=== PATIENT | male | born 1970 | race Caucasian/White ===

== ENCOUNTER 2017-02-22 23:14 | Inpatient (IN) | payer MEDICAID, SELFPAY ==
[2017-02-22] MEDS ORDERED: Acetaminophen 500 MG TAB ONE (23:54)
[2017-02-23 00:17] LABS: Hematocrit 48.8 % (42.0-52.0); Mean Platelet Volume 8.5 fL (7.4-10.4); Red Blood Cell (RBC) Count 4.93 mill/uL (4.70-6.10); White Blood Cell (WBC) Count 19.6 thou/uL (4.8-10.8)
[2017-02-23 00:27] LABS: ALT (SGPT) 61 U/L (8-55); AST (SGOT) 38 U/L (5-34); Alkaline Phosphatase 131 U/L (40-150); Anion Gap 14 mmol/L (10-20); BUN (Urea Nitrogen) 12 mg/dL (8.9-20.6); Bilirubin, Total 1.4 mg/dL (0.2-1.2); Calc. Creatinine Clearance 0 mL/min (70-130); Calcium 9.8 mg/dL (7.8-10.44); Carbon Dioxide 22 mmol/L (22-29); Chloride 104 mmol/L (98-107); Estimated GFR-MDRD Greater than 90; Protein, Total 7.1 g/dL (6.0-8.3)
[2017-02-23] MEDS ORDERED: Ketorolac Tromethamine 30 MG/ML VIAL ONE (00:27)
[2017-02-23 00:32] LABS: Troponin I Less than 0.010 ng/mL (< 0.028)
[2017-02-23 00:34] LABS: Band 8 % (5-11); Neutrophil 77 % (42-75)
[2017-02-23] MEDS ORDERED: Albuterol Sulfate 2.5 mg/3 ml Neb ONE (00:39)
[2017-02-23] MEDS ORDERED: HYDROcodone/Acetaminophen 5/325 mg Tablet ONE (01:17)
[2017-02-23 01:36] LABS: Lactic Acid - Sepsis 2.4 mmol/L (0.5-2.2)
[2017-02-23] MEDS ORDERED: oxyCODONE/Acetaminophen 5 mg/325 mg Tablet PO SCH (02:00)
[2017-02-23] MEDS ORDERED: Acetaminophen 325 MG TAB PO PRN (02:20)
[2017-02-23] MEDS ORDERED: Ondansetron HCl/PF 4 MG/2 ML Vial IVP PRN (02:20)
[2017-02-23] MEDS ORDERED: Ondansetron ODT 4 MG TAB SL PRN (02:20)
[2017-02-23] MEDS ORDERED: Sodium Chloride 0.9% 1,000 ML IV SCH (02:30)
[2017-02-23 02:39] VITALS: BMI 33.7
[2017-02-23 07:42] VITALS: BP 124/56; TEMP 98.2
[2017-02-23] MEDS ORDERED: HYDROcodone/Acetaminophen 10/325 mg Tablet PO PRN (08:16)
--- NOTE | 2017-02-23 08:48 | RAD ---
PORTABLE CHEST 1 VIEW: Date: 02/23/17 Time: 0013 hours HISTORY: Sore throat, left-sided pneumonia. FINDINGS/IMPRESSION: Comparison made with exam of 09/09/15. The heart size is borderline. There is mild prominence of the pulmonary vascularity. There is questio nable infiltrate/consolidation in the retrocardiac region. No pneumothoraces or large effusions are s een. POS: [facility]
--- NOTE | 2017-02-23 08:52 | PDOC.EVN ---
Event Note - Event Note Event Note: Called by RN about patient requesting to leave AMA. He states that he is not being treated appropriately for pain. He is requesting pain medications which cannot be given due to his BP. He has been admitted for suspected PNA, hypotension, possible sepsis. He is currently requiring oxygen. He wishes to leave AMA. I have told the staff anesthetist that I am en route to speak to the patient and evaluate him. However, the patient still wants to leave AMA stating we aren' t giving him the right medications. He is aware of his current clinical diagnosis, and the risks of leaving AMA including further SOB, respiratory distress, worsening of his situation, and possible . He still wishes to leave AMA.
== END 2017-02-23 08:26 | disposition left against medical advice (07) | DRG 871 ==
LOC: ERS 23:14 → IMCU/EMU 02-23 01:00
PROVIDERS: ADMIT Internal Medicine; ATTEND Internal Medicine
DX: A41.9 Sepsis, unspecified organism (principal); J18.9 Pneumonia, unspecified organism; E11.9 Type 2 diabetes mellitus without complications; E78.5 Hyperlipidemia, unspecified; F17.210 Nicotine dependence, cigarettes, uncomplicated
CPT/HCPCS: 36415; 36416; 71010; 80053; 82553; 83605; 83880; 84484; 85025; 87040; 93005; 94644; J1885; J1956; J7611

== ENCOUNTER 2017-11-12 18:52 | Emergency (ER) | payer MEDICARE | END 2017-11-12 20:11 | disposition left against medical advice (07) | LOC: ERS 18:52 | DX: Z53.21 Procedure and treatment not carried out due to patient leaving prior to being seen by health care provider (principal) ==